=== PATIENT | male | born 1940 | race Two or more races ===

== ENCOUNTER 2020-05-20 09:29 | Inpatient (IN) | payer OTHER ==
[~2020-05-20] VITALS: Ht 160 cm; Wt 70.3 kg
[~2020-05-20 09:29] MED LIST: ASPIR-LOW81 MG; CILOSTAZOL100 MG; COZAAR50 MG; DOXAZOSIN MESYLA2 MG; FOLIC ACID1 MG; GLIMEPIRIDE4 MG; HUMALOG MIX 75/23 ML; HYDROCLOROTHIAZIDE; HYZAAR 100-121 UDTAB PO; LEVAQUIN750 MG PO; MAVIK4 MG; SIMVASTATIN80 MG; TRENTAL; VERAPAMIL ER200 MG
[2020-05-21] MEDS ORDERED: PENTOXIFYLLINE400 MG (08:04)
== END 2020-05-30 18:34 | disposition home or self-care (01) | DRG 300 ==
LOC: ER 09:29 → MEDJ 19:38 → MEDI 05-22 19:30
PROVIDERS: ADMIT Internal Medicine; ATTEND Internal Medicine
PROC: BL31ZZZ Magnetic Resonance Imaging (MRI) of Lower Extremity Connective Tissue (ICD-10-PCS; principal; 2020-05-20)
PROC: B54CZZZ Ultrasonography of Left Lower Extremity Veins (ICD-10-PCS; 2020-05-22)
DX: E11.52 Type 2 diabetes mellitus with diabetic peripheral angiopathy with gangrene (principal); I96 Gangrene, not elsewhere classified; M86.172 Other acute osteomyelitis, left ankle and foot; B37.89 Other sites of candidiasis; B95.61 Methicillin susceptible Staphylococcus aureus infection as the cause of diseases classified elsewhere; D63.8 Anemia in other chronic diseases classified elsewhere; E11.621 Type 2 diabetes mellitus with foot ulcer; E11.65 Type 2 diabetes mellitus with hyperglycemia; L97.523 Non-pressure chronic ulcer of other part of left foot with necrosis of muscle; Z20.828 Contact with and (suspected) exposure to other viral communicable diseases; Z79.4 Long term (current) use of insulin

== ENCOUNTER 2022-06-03 15:10 | Inpatient (IN) | payer OTHER ==
[~2022-06-03] VITALS: Ht 157.5 cm; Wt 72.1 kg
[~2022-06-03 15:10] MED LIST changes: +PENTOXIFYLLINE400 MG
[2022-06-06] MEDS ORDERED: AMLODIPINE BESY10 MG (14:17)
[2022-06-06] MEDS ORDERED: ARTHRITIS PAIN650 MG (14:17)
[2022-06-06] MEDS ORDERED: OMEPRAZOLE20 MG (14:18)
[2022-06-06] MEDS ORDERED: ATORVASTATIN CA40 MG (14:18)
[2022-06-22] MEDS ORDERED: LEVOFLOXACIN750 MG PO (16:42)
== END 2022-06-23 11:51 | disposition home or self-care (01) | DRG 255 ==
LOC: ER 15:10 → MEDJ 06-04 00:07
PROVIDERS: Specialist; ADMIT Internal Medicine; ATTEND Internal Medicine
PROC: 0Y6P0Z0 Detachment at Right 1st Toe, Complete, Open Approach (ICD-10-PCS; principal; 2022-06-14 17:30)
PROC: BW24ZZZ Computerized Tomography (CT Scan) of Chest and Abdomen (ICD-10-PCS; 2022-06-17)
PROC: 3E0F7SF Introduction of Other Gas into Respiratory Tract, Via Natural or Artificial Opening (ICD-10-PCS; 2022-06-18)
PROC: 0JDQ0ZZ Extraction of Right Foot Subcutaneous Tissue and Fascia, Open Approach (ICD-10-PCS; 2022-06-22)
DX: E11.52 Type 2 diabetes mellitus with diabetic peripheral angiopathy with gangrene (principal); J18.9 Pneumonia, unspecified organism; I96 Gangrene, not elsewhere classified; M86.171 Other acute osteomyelitis, right ankle and foot; L03.032 Cellulitis of left toe; N18.9 Chronic kidney disease, unspecified; L08.9 Local infection of the skin and subcutaneous tissue, unspecified; E11.65 Type 2 diabetes mellitus with hyperglycemia; D64.9 Anemia, unspecified; E11.621 Type 2 diabetes mellitus with foot ulcer; L97.513 Non-pressure chronic ulcer of other part of right foot with necrosis of muscle; E11.22 Type 2 diabetes mellitus with diabetic chronic kidney disease; Z79.4 Long term (current) use of insulin; Z20.822 Contact with and (suspected) exposure to COVID-19